=== PATIENT | male | born 1970 | race Caucasian/White ===

== ENCOUNTER 2021-02-16 12:37 | Emergency (ER) | payer MEDICAID ==
[~2021-02-16] VITALS: Ht 160 cm; Wt 73.5 kg
[2021-02-16 12:46] VITALS: BP 136/100
--- NOTE | 2021-02-16 13:05 | NUR ---
Patient ambulated to bed 09 with steady/even gait.
--- NOTE | 2021-02-16 13:15 | NUR ---
SAID AT BEDSIDE EVALUATING PT
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
--- NOTE | 2021-02-16 13:47 | NUR ---
Lab bedside for lab draw.
[2021-02-16 14:08] LABS: BASOPHILS # (AUTO) 0.1 K/uL (0.00-0.22); BASOPHILS % (AUTO) 0.5 % (0.0-2.0); EOSINOPHILS # (AUTO) 1.2 K/uL (0-0.4); EOSINOPHILS % (AUTO) 8.7 % (0.0-4.0); HEMATOCRIT 30.1 % (36-52); HEMOGLOBIN 9.4 g/dL (12.0-18.0); LYMPHOCYTES # (AUTO) 2.9 K/uL (2.0-11.5); MEAN CORPUSCULAR HEMOGLOBIN 23 pg (27-31); MEAN CORPUSCULAR HGB CONC 31 g/dL (33-37); MONOCYTES # (AUTO) 1.1 K/uL (0.8-1.0); NEUTROPHILS # (AUTO) 8.6 K/uL (1.8-7.7); NEUTROPHILS % (AUTO) 61.8 % (42.2-75.2); PLATELET COUNT (AUTO) 230 K/uL (140-450); RED BLOOD CELL COUNT(AUTO) 4.18 MIL/uL (4.20-6.10); RED CELL DISTRIBUTION WIDTH 19.8 % (11.6-13.7); WHITE BLOOD COUNT (AUTO) 13.9 K/uL (4.8-10.8)
--- NOTE | 2021-02-16 14:20 | NUR ---
Dr. Da Silva is evaluating patient at bedside.
[2021-02-16 14:25] LABS: ALBUMIN 2.9 g/dL (3.4-5.0); CARBON DIOXIDE 26.2 mmol/L (21-32); CREATININE 1.1 mg/dL (0.6-1.3); POTASSIUM 3.2 mmol/L (3.5-5.1); TOTAL BILIRUBIN 0.2 mg/dL (0.0-1.0)
[2021-02-16 15:38] VITALS: BP 107/57
--- NOTE | 2021-02-16 15:39 | NUR ---
Patient discharged with v/s stable. Written and verbal after care instructions given and explained. Patient verbalized understanding. Ambulatory with steady gait. All questions addressed prior to discharge. Advised to follow up with PMD.
== END 2021-02-16 15:39 | disposition home or self-care (01) ==
LOC: MED 12:37
DX: R10.9 Unspecified abdominal pain (principal); R50.9 Fever, unspecified; R19.7 Diarrhea, unspecified; F17.200 Nicotine dependence, unspecified, uncomplicated; F11.90 Opioid use, unspecified, uncomplicated; Z98.890 Other specified postprocedural states
CPT/HCPCS: 36415; 80053; 81002; 83690; 85025; 99284